=== PATIENT | female | born 1965 | race American Indian/Alaskan Native ===

== ENCOUNTER 2017-06-23 09:26 | Emergency (ER) | payer MEDICARE ==
[2017-06-23] MEDS ORDERED: PROVENTIL IH ONE ×3 (09:35→12:36)
--- NOTE | 2017-06-23 11:49 | Emergency Department Report ---
Minor Respiratory - HPI Chief Complaint: Upper Respiratory Infection Stated Complaint: BRONCHITIS Time Seen by Provider: 06/23/17 11:38 Duration: 3 Days Severity: moderate Minor Respiratory: Yes Able to Tolerate Fluids, Yes Cough, No Rhinorrhea, No Sore Throat, No Ear Pain, No Sick Contacts, No Hemoptysis, No Chest Pain, No Shortness of Breath, No Fever ED Review of Systems ROS: Stated complaint: BRONCHITIS Other details as noted in HPI Comment: All other systems reviewed and negative Constitutional: no symptoms reported, see HPI. denies: chills, fever Eyes: as per HPI. denies: eye pain ENT: as per HPI. denies: ear pain, throat pain, dental pain, hearing loss, epistaxis Respiratory: no symptoms reported, see HPI, cough. denies: orthopnea, shortness of breath, SOB with exertion, SOB at rest Cardiovascular: as per HPI. denies: chest pain, palpitations, dyspnea on exertion, orthopnea Endocrine: no symptoms reported, see HPI. denies: excessive sweating, flushing Gastrointestinal: as per HPI. denies: abdominal pain, nausea, vomiting Genitourinary: as per HPI. denies: urgency Musculoskeletal: as per HPI. denies: back pain Skin: as per HPI. denies: rash, lesions Neurological: as per HPI. denies: headache, weakness Psychiatric: as per HPI. denies: anxiety, depression Hematological/Lymphatic: as per HPI. denies: easy bleeding ED Past Medical Hx - Past Medical History Hx Hypertension: Yes Hx Diabetes: Yes Hx Psychiatric Treatment: Yes (Anxiety) - Surgical History Past Surgical History?: Yes Additional Surgical History: hysterectomy, , Breast Bx - Family History Family history: no significant - Social History Smoking Status: Current Every Day Smoker Substance Use Type: None - Medications Home Medications: Home Medications Medication Instructions Recorded Confirmed Last Taken Type Albuterol Sulfate [Albuterol 0.63% 0.63 mg IH BID PRN #1 box 06/23/17 Unknown Rx NEBS] Azithromycin [Zithromax Z-JUANITA] 250 mg PO DAILY #6 tablet 06/23/17 Unknown Rx Benzonatate [Tessalon Perles] 100 mg PO BID PRN #10 capsule 06/23/17 Unknown Rx predniSONE [Deltasone] 20 mg PO QDAY #5 tab 06/23/17 Unknown Rx Minor Respiratory Exam - Exam General: Vital signs noted. No distress. Alert and acting appropriately. HEENT: Yes Moist Mucous Membranes, No Pharyngeal Erythema, No Pharyngeal Exudates, No Rhinorrhea, No Conjuctival Injection, No Frontal Tenderness, No Maxillary Tenderness Ear: Neither TM Bulge, Neither TM Erythema, Neither EAC Pain, Neither EAC Discharge Neck: Yes Supple, No Adenopathy Lungs: Yes Good Air Exchange, Yes Wheezes (b upper p 1st tx in triage), Yes Cough (yellow sputum), No Ronchi, No Stridor, No Labored Respirations, No Retractions, No Use of Accessory Muscles, No Other Abnormal Lung Sounds Heart: Yes Regular, No Murmur Abdomen: Yes Normal Bowel Sounds, No Tenderness, No Peritoneal Signs Skin: No Rash, No Edema Neurologic: Alert and oriented, no deficits. Musculoskeletal: Unremarkable. ED Course Vital Signs 06/23/17 06/23/17 06/23/17 09:31 09:47 09:57 Temperature 98.8 F Pulse Rate 80 Pulse Rate [ 84 88 Bilateral Upper Lobe] Respiratory 17 Rate Respiratory 18 18 Rate [Bilateral Upper Lobe] Blood Pressure 159/83 O2 Sat by Pulse 95 Oximetry - Reevaluation(s) Reevaluation #1: 06/23/17 13:08 to er w s/s urti cough yellow phlegm a/c asthma neb broken has had pna 3 times no intubation or hosp vss no fever non toxic ambulating wo difficulty no cp or sob got rt tx in triage but is still wheezing sats 99-100 on ra dm follows bs and is reluctant of steroids; explained to her this will be hard to tx wo them. educated to follow rx, bs, and diet medicated per orders Reevaluation #2: 06/23/17 13:11 vss feels better p meds dc home w dc poc. verbalizes understanding ED Medical Decision Making - Radiology Data Radiology results: report reviewed, image reviewed - Medical Decision Making urti a/c asthma non toxic appearing no fever - Differential Diagnosis urti ro pna Critical care attestation.: If time is entered above; I have spent that time in minutes in the direct care of this critically ill patient, excluding procedure time. ED Disposition Clinical Impression: Bronchitis, Diabetes Upper respiratory infection Qualifiers: URI type: unspecified URI Qualified Code(s): J06.9 - Acute upper respiratory infection, unspecified Asthma Qualifiers: Asthma severity: mild intermittent Disposition: DC-01 TO HOME OR SELFCARE Is pt being admited?: No Does the pt Need Aspirin: No Condition: Stable Instructions: Asthma (ED), Diabetes Mellitus Type 2 in Adults (ED), Chronic Bronchitis (ED) Additional Instructions: rest fluids meds as ordered follow your blood sugars follow up pcp Sunday Prescriptions: Albuterol Sulfate [Albuterol 0.63% NEBS] 0.63 mg IH BID PRN #1 box PRN Reason: Wheezing Azithromycin [Zithromax Z-JUANITA] 250 mg PO DAILY #6 tablet Benzonatate [Tessalon Perles] 100 mg PO BID PRN #10 capsule PRN Reason: Cough predniSONE [Deltasone] 20 mg PO QDAY #5 tab Referrals: PRIMARY CAREMD [Primary Care Provider] - 3-5 Days AVA BRITT MD [Staff Physician] - 3-5 Days Time of Disposition: 12:02
--- NOTE | 2017-06-23 12:12 | XRay Report ---
Chest 2 views: History: Respiratory infection. Findings: Normal cardiomediastinal silhouette the trachea is midline. No consolidation, pneumothorax or pleural effusion. Impression: No acute cardiopulmonary findings. 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
[2017-06-23 13:01] VITALS: BP 166/93
== END 2017-06-23 13:02 | disposition home or self-care (01) ==
LOC: ED 09:26
DX: J40 Bronchitis, not specified as acute or chronic (principal); J06.9 Acute upper respiratory infection, unspecified; J45.20 Mild intermittent asthma, uncomplicated; E11.9 Type 2 diabetes mellitus without complications; I10 Essential (primary) hypertension; F41.9 Anxiety disorder, unspecified; F17.200 Nicotine dependence, unspecified, uncomplicated
CPT/HCPCS: 71020; 94640; 96372; 99284; J2930